=== PATIENT | female | born 1980 | race Caucasian/White ===

== ENCOUNTER 2017-09-10 12:14 | Emergency (ER) | payer BC, MEDICAID ==
[2017-09-10 13:15] VITALS: TEMP 98
[2017-09-10] MEDS ORDERED: Sodium Chloride 0.9% 1,000 ML IV STA ×2 (13:17→15:02)
[2017-09-10 14:01] LABS: BASO # 0.1 K/uL (0.0-0.2); BASO % 0.5 % (0.0-2.0); EOS % 0.2 % (0.0-4.0); HEMOGLOBIN 13.2 g/dL (12.0-16.0); LYMPH # 2.1 K/uL (1.0-4.3); LYMPH % 16.5 % (20.0-40.0); MEAN CELL VOLUME 86.3 fl (81.0-99.0); MEAN CORPUSCULAR HGB CONC 32.4 g/dL (33.0-37.0); MEAN PLATELET VOLUME 7.7 fl (7.2-11.7); MONO # 0.8 K/uL (0.0-0.8); MONO % 6.3 % (0.0-10.0); NEUT # 9.8 K/uL (1.8-7.0); NEUT % 76.5 % (50.0-75.0); RBC 4.73 Mil/uL (3.80-5.20); RED CELL DISTRIBUTION WIDTH 13.9 % (11.5-14.5); WHITE BLOOD COUNT 12.8 K/uL (4.8-10.8)
[2017-09-10 14:11] LABS: ALBUMIN 4.2 g/dL (3.5-5.0); ALT/SGPT 29 U/L (9-52); AST/SGOT 27 U/L (14-36); BLOOD UREA NITROGEN 13 mg/dl (7-17); CALCIUM 8.7 mg/dL (8.4-10.2); GFR AFRICAN-AMERICAN > 60; GFR NON-AFRICAN AMERICAN > 60; LIPASE 50 U/L (23-300)
[2017-09-10 14:33] LABS: ALB/GLOB RATIO 1.2 (1.0-2.1)
[2017-09-10 14:39] LABS: SQUAMOUS EPITHIAL 5 /hpf (0-5); URINE BACTERIA RARE (<OCC); URINE BILIRUBIN NEGATIVE (NEGATIVE); URINE BLOOD NEGATIVE (NEGATIVE); URINE CLARITY CLOUDY (Clear); URINE COLOR YELLOW (YELLOW); URINE GLUCOSE (UA) >=500 mg/dL (Normal); URINE LEUKOCYTE ESTERASE SMALL Leu/uL (Negative); URINE NITRATE NEGATIVE (NEGATIVE); URINE PROTEIN NEGATIVE (NEGATIVE); URINE UROBILINOGEN 0.2-1.0 mg/dL (0.2-1.0)
--- NOTE | 2017-09-10 14:55 | RAD ---
HISTORY: cough COMPARISON: 05/04/2014 TECHNIQUE: Chest PA and lateral FINDINGS: LUNGS: No active pulmonary disease. PLEURA: No significant pleural effusion identified. No pneumothorax apparent. CARDIOVASCULAR: Normal. OSSEOUS STRUCTURES: No significant abnormalities. VISUALIZED UPPER ABDOMEN: Normal. OTHER FINDINGS: None. IMPRESSION: No active disease.
--- NOTE | 2017-09-10 15:26 | ED PDOC ---
HPI: General Adult Time Seen by Provider: 09/10/17 12:29 Chief Complaint (Nursing): Chest Pain History Per: Patient Additional Complaint(s): Pt. states for the past 2 days she's had diffuse bodyaches, chills, cough, sore throat, and a gradual onset headache. Also reports having a frontal headache. Has been using OTC meds without relief. Pt. also c/o epigastric pain that began after vomiting. Denies SOB, palpitations, hemoptysis, diarrhea, head injury, rash. Of note, her son was dx as having influenza last week. Further states 2 weeks ago she completed a course of z-pack for a cough which improved slightly but then worsened 2 days ago. Past Medical History Reviewed: Historical Data, Nursing Documentation, Vital Signs Vital Signs: Last Vital Signs Temp 98.0 F 09/10/17 13:14 Pulse 81 09/10/17 12:19 Resp 16 09/10/17 12:19 BP 126/69 09/10/17 12:19 Pulse Ox 100 09/10/17 15:37 - Medical History PMH: Diabetes (type I), Gastritis, GERD, Graves' Disease - Surgical History Surgical History: - Family History Family History: States: No Known Family Hx - Home Medications Home Medications: Ambulatory Orders Medication Instructions Recorded Alogliptin Alfa/Pioglitazone 1 tab PO DAILY 01/24/15 [Oseni 25 mg-15 mg] Esomeprazole Magnesium [Nexium] 1 tab PO DAILY 01/24/15 Exenatide Microspheres [Bydureon] 2 mg SUBCUT QWK 01/24/15 Insulin Glargine,Hum.rec.anlog 40 units SUBCUT HS 01/24/15 [Lantus] Loratadine/Pseudoephedrine 1 t24 PO DAILY #10 t24 01/24/15 [Claritin-D 24 Hour 10 mg-240 mg] Saxagliptin HCl [Onglyza] 1 tab PO DAILY 01/24/15 Sulfamethoxazole/Trimethoprim 1 tab PO BID #20 tab 01/24/15 [Bactrim DS 800 mg-160 mg] Lidocaine 2% Gel [Xylocaine 2% 1 appl TP Q12 #1 gel 07/18/15 (Uro-Jet)] oxyCODONE/Acetaminophen [Percocet 1 tab PO QID PRN #20 tab 07/18/15 5/325 mg Tab] oxyCODONE/Acetaminophen [Percocet 1 tab PO Q6H PRN #10 tab 08/12/15 5/325 mg Tab] Benzonatate [Tessalon Perle] 100 mg PO Q8 PRN #30 capsule 09/10/17 Metoclopramide [Reglan] 10 mg PO Q8 PRN #15 tab 09/10/17 Naproxen [Naprosyn] 500 mg PO BID PRN #30 tab 09/10/17 - Allergies Allergies/Adverse Reactions: Allergies Allergy/AdvReac Type Severity Reaction Status Date / Time No Known Allergies Allergy Verified 09/10/17 12:19 Review of Systems ROS Statement: Except As Marked, All Systems Reviewed And Found Negative Physical Exam - Reviewed Nursing Documentation Reviewed: Yes Vital Signs Reviewed: Yes - Physical Exam Appears: Positive for: Well, Non-toxic, No Acute Distress Head Exam: Positive for: ATRAUMATIC, NORMAL INSPECTION, NORMOCEPHALIC Skin: Positive for: Normal Color, Warm. Negative for: Rash Eye Exam: Positive for: EOMI, Normal appearance, PERRL ENT: Positive for: Normal ENT Inspection Neck: Positive for: Normal, Painless ROM Cardiovascular/Chest: Positive for: Regular Rate, Rhythm Respiratory: Positive for: CNT, Normal Breath Sounds Pulses-Radial (L): 2+ Gastrointestinal/Abdominal: Positive for: Normal Exam, Bowel Sounds, Soft. Negative for: Tenderness Back: Positive for: Normal Inspection Extremity: Positive for: Normal ROM Neurologic/Psych: Positive for: Alert, Oriented - Laboratory Results Result Diagrams: 09/10/17 13:50 09/10/17 13:50 - ECG ECG: Positive for: Interpreted By Me ECG Rhythm: Positive for: Sinus Rhythm. Negative for: ST/T Changes Rate: 83 O2 Sat by Pulse Oximetry: 100 - Radiology X-Ray: Interpreted by Me Disposition - Clinical Impression Clinical Impression: Viral syndrome - Patient ED Disposition Is Patient to be Admitted: No - Disposition Referrals: [facility] [Outside] Disposition: Routine/Home Disposition Time: 17:38 Condition: IMPROVED Prescriptions: Benzonatate [Tessalon Perle] 100 mg PO Q8 PRN #30 capsule PRN Reason: Cough Metoclopramide [Reglan] 10 mg PO Q8 PRN #15 tab PRN Reason: nausea or headache Naproxen [Naprosyn] 500 mg PO BID PRN #30 tab PRN Reason: Pain Instructions: Viral Syndrome (ED) Forms: [employer] (Tongan), [facility] School/Work Excuse Print Language: ITALIAN
--- NOTE | 2017-09-10 15:55 | US ---
HISTORY: epigastric abdominal pain COMPARISON: None. TECHNIQUE: Sonographic evaluation of the abdomen. FINDINGS: Body habitus limits interpretation as well as bowel gas. LIVER: Measures 13.4 cm. Increased echogenicity of the liver parenchyma suggests diffuse fatty infiltration or other infiltrative process. Clinically correlate further. No mass. No intrahepatic bile duct dilatation. GALLBLADDER: Unremarkable. No gallstones. COMMON BILE DUCT: Measures 4.2 mm. No stones. No dilatation. PANCREAS: Body of pancreas appears unremarkable with the remainder obscured by overlying bowel gas. RIGHT KIDNEY: Measures 10.4 x 4.8 x 5.0cm. Normal echogenicity. No calculus, mass, or hydronephrosis. LEFT KIDNEY: Measures 12.2 x 4.7 x 5.2cm. Normal echogenicity. No calculus, mass, or hydronephrosis. SPLEEN: Normal in size and contour. No mass. AORTA: No aneurysmal dilatation. IVC: Unremarkable. OTHER FINDINGS: None. IMPRESSION: Difficult ultrasonography of the pancreas due to overlying bowel gas with remainder the examination remarkable only for a hepatic steatosis likely.
[2017-09-10 17:53] VITALS: BP 102/67; PULSE 100; RESP 18; O2SAT 99
--- NOTE | 2017-09-11 09:10 | CARD ---
APPROVED REPORT EKG Measurement Heart [id number] <Conclusion> Normal sinus rhythm Normal ECG
== END 2017-09-10 17:58 | disposition home or self-care (01) ==
LOC: H.ER 12:14
DX: B34.9 Viral infection, unspecified (principal); Z00.8 Encounter for other general examination
CPT/HCPCS: 71020; 76700; 80053; 81003; 81025; 83690; 84484; 85025; 87040; 87804; 93005; 96361; 96374; 96375; 99284; J1885; J2765; J7040